=== PATIENT | female | born 1955 | race Caucasian/White ===

== ENCOUNTER → 2017-04-10 | Outpatient (CLI) | payer OTHER ==
[~2017-04-10] MED LIST: AMLO10TA2 PO; LISI40TA PO; MULT-6 PO; OMEG1CAP23 PO
[2017-04-10 12:50] LABS: HEMATOCRIT 37.4 % (34.6-47.8); HEMOGLOBIN 12.4 g/dL (11.7-16.4); WHITE BLOOD COUNT 7.7 x10^3/uL (3.4-10)
[2017-04-10 13:01] LABS: ASPARTATE AMINO TRANSFERASE 11 U/L (15-37); BLOOD UREA NITROGEN 21 mg/dL (7-18)
== END | disposition home or self-care (01) ==
LOC: STAR 12:00
PROVIDERS: ATTEND Specialist
DX: Z01.818 Encounter for other preprocedural examination (principal); R94.31 Abnormal electrocardiogram [ECG] [EKG]; R79.1 Abnormal coagulation profile
CPT/HCPCS: 36415; 71020; 80053; 85025; 85610; 85730; 86304; 93005

== ENCOUNTER 2017-04-30 10:13 | Inpatient (IN) | payer OTHER ==
[~2017-04-30] VITALS: Ht 177.8 cm; Wt 76.2 kg
[2017-04-30] MEDS ORDERED: PANTOPRAZOLE 80 MG in SODIUM CHLORIDE 0.9% 100 ML IV SCH (10:51)
[2017-04-30] MEDS ORDERED: PANTOPRAZOLE 80 MG in SODIUM CHLORIDE 0.9% 50 ML IVPB ONE (10:51)
[2017-04-30] MEDS ORDERED: SODIUM CHLORIDE FLUSH 10ML SYR IVF ONE (11:00)
[2017-04-30] MEDS ORDERED: FAMOTIDINE 20 MG/2 ML IVPush ONE (11:00)
[2017-04-30] MEDS ORDERED: SODIUM CHLORIDE 0.9% 1,000ML IVBOLUS ONE ×3 (11:00→13:30)
[2017-04-30] MEDS ORDERED: FAMOTIDINE 20 MG/2 ML ONE (11:12)
[2017-04-30 11:18] LABS: MEAN CORPUSCULAR HEMOGLOBIN 29.4 pg (27.0-34.8); MEAN CORPUSCULAR HGB CONC 33.2 g/dL (32.4-35.8); MEAN CORPUSCULAR VOLUME 88.7 fL (80-100); MEAN PLATELET VOLUME 6.2 fL (7.4-10.4); PLATELET COUNT 685 x10^3/uL (130-400); RED BLOOD COUNT 1.33 x10^6/uL (3.82-5.3); RED CELL DISTRIBUTION WIDTH 14.5 % (9.6-15.2)
[2017-04-30 11:19] LABS: HEMOGRAM NOTE RECHECKED
[2017-04-30 11:20] LABS: INTERNATIONAL NORMALIZED RATIO 1.31 (0.93-1.1)
[2017-04-30 11:24] LABS: ALANINE AMINOTRANSFERASE 14 U/L (12-78); ALBUMIN 1.9 g/dL (3.4-5.0); ANION GAP 9 mmol/L (5-15); CALCIUM 7.6 mg/dL (8.5-10.1); CHLORIDE 108 mmol/L (98-107); CREATININE 1.12 mg/dL (0.55-1.02)
[2017-04-30 11:26] LABS: ALKALINE PHOSPHATASE 53 U/L (45-117); BILIRUBIN,TOTAL 3.8 mg/dL (0.2-1.0); TOTAL PROTEIN 4.9 g/dL (6.4-8.2)
[2017-04-30 11:45] LABS: PROTHROMBIN TIME 13.4 Seconds (9.6-11.5)
[2017-04-30 11:52] LABS: MD YES
[2017-04-30 12:18] VITALS: BP 97/52
[2017-04-30 12:27] LABS: BAND#(MANUAL) 0.41 x10^3/uL; BANDS%(MANUAL) 2 % (0-7); LYMPH#(MANUAL) 1.04 x10^3/uL (1-3.4); LYMPHS% (MANUAL) 5 % (22-44); MONOS#(MANUAL) 0.21 x10^3/uL (0.3-2.7); MONOS% (MANUAL) 1 % (2-9); SEG#(MANUAL) 19.04 x10^3/uL (1.8-6.8); SEGS% (MANUAL) 92 % (42-75)
[2017-04-30 12:28] LABS: <PLATELET ESTIMATE> INCREASED; <PLT MORPHOLOGY> NORMAL PLT MORPH; ANISOCYTOSIS 1+; HYPOCHROMIA 1+; MICROCYTOSIS 1+
[2017-04-30 12:30] LABS: SPHEROCYTES 1+
[2017-04-30 12:33] VITALS: BP 97/52
[2017-04-30] MEDS ORDERED: CEFTRIAXONE PMX 1GM/50ML 50 ML ONE (12:36)
[2017-04-30] MEDS ORDERED: BISACODYL 10 MG SUPP PR PRN (13:30)
[2017-04-30] MEDS ORDERED: CEFTRIAXONE PMX 1GM/50ML 50 ML IV ONE (14:00)
[2017-04-30] MEDS ORDERED: SODIUM CHLORIDE 0.9% 1,000 ML IV SCH (14:00)
[2017-04-30 14:09] VITALS: BP 97/56
[2017-04-30 17:08] VITALS: BP 115/66
[2017-04-30] MEDS: THIAMINE 100 MG, MVI ADULT 10 ML, FOLIC ACID 1 MG in D5%-0.9% NACL 1,000 ML IV SCH (21:14)
[2017-04-30] MEDS: PANTOPRAZOLE 80 MG in SODIUM CHLORIDE 0.9% 100 ML IV SCH (21:37)
[2017-05-01 04:00] VITALS: BP 140/73
[2017-05-01 05:09] LABS: ALANINE AMINOTRANSFERASE 13 U/L (12-78); ALBUMIN 1.8 g/dL (3.4-5.0); ANION GAP 5 mmol/L (5-15); CALCIUM 6.9 mg/dL (8.5-10.1); CHLORIDE 116 mmol/L (98-107); CREATININE 0.72 mg/dL (0.55-1.02)
[2017-05-01 05:11] LABS: ALKALINE PHOSPHATASE 48 U/L (45-117); BILIRUBIN,TOTAL 2.6 mg/dL (0.2-1.0); TOTAL PROTEIN 4.5 g/dL (6.4-8.2)
[2017-05-01 05:12] LABS: BASOPHILS # (AUTO) 0.05 x10^3/uL (0-0.1); BASOPHILS % (AUTO) 0 % (0-1); EOSINOPHILS # (AUTO) 0.03 x10^3/uL (0-0.4); EOSINOPHILS % (AUTO) 0 % (1-7); LYMPHOCYTES # (AUTO) 2.17 x10^3/uL (1-3.4); LYMPHOCYTES % (AUTO) 15 % (22-44); MD NO; MEAN CORPUSCULAR HEMOGLOBIN 30.6 pg (27.0-34.8); MEAN CORPUSCULAR VOLUME 87.3 fL (80-100); MEAN PLATELET VOLUME 6.4 fL (7.4-10.4); MONOCYTES % (AUTO) 7 % (2-9); NEUTROPHILS # (AUTO) 11.64 x10^3/uL (1.8-6.8); NEUTROPHILS % (AUTO) 78 % (42-75); PLATELET COUNT 513 x10^3/uL (130-400); RED BLOOD COUNT 2.82 x10^6/uL (3.82-5.3); RED CELL DISTRIBUTION WIDTH 16.3 % (9.6-15.2)
[2017-05-01] MEDS ORDERED: MAGNESIUM SULFATE PMX 4GM/100M 100 ML IV ONE (07:30)
[2017-05-01] MEDS ORDERED: POTASSIUM CHLORIDE 40 MEQ in SODIUM CHLORIDE 0.9% 100 ML IV ONE (07:30)
[2017-05-01] MEDS: PANTOPRAZOLE 80 MG in SODIUM CHLORIDE 0.9% 100 ML IV SCH ×2 (07:47→21:46)
[2017-05-01] MEDS: SODIUM CHLORIDE 0.45% 1,000 ML IV SCH (10:10)
[2017-05-01] MEDS ORDERED: FENTANYL PF 100 MCG/2ML ONE (12:24)
[2017-05-01] MEDS ORDERED: MIDAZOLAM 1 MG/ML, 5ML ONE (12:25)
[2017-05-01 14:00] VITALS: BP 136/79
[2017-05-01 18:20] VITALS: BP 150/68
[2017-05-01 18:25] VITALS: BP 182/71
[2017-05-01 18:28] VITALS: BP 179/85
[2017-05-01 20:00] VITALS: BP 135/80
[2017-05-01] MEDS: THIAMINE 100 MG, MVI ADULT 10 ML, FOLIC ACID 1 MG in D5%-0.9% NACL 1,000 ML IV SCH (21:46)
[2017-05-02] MEDS: THIAMINE IV SCH (01:32)
[2017-05-02] MEDS: D5 IV SCH (01:32)
[2017-05-02] MEDS: NACL IV SCH (01:32)
[2017-05-02] MEDS: FOLIC ACID IV SCH (01:32)
[2017-05-02] MEDS: MVI ADULT IV SCH (01:32)
[2017-05-02 04:00] VITALS: BP 139/76
[2017-05-02 06:01] LABS: CHLORIDE 111 mmol/L (98-107)
[2017-05-02 06:05] LABS: ANION GAP 6 mmol/L (5-15); CALCIUM 7.6 mg/dL (8.5-10.1); CREATININE 0.61 mg/dL (0.55-1.02)
[2017-05-02 06:11] LABS: BASOPHILS # (AUTO) 0.07 x10^3/uL (0-0.1); BASOPHILS % (AUTO) 1 % (0-1); EOSINOPHILS # (AUTO) 0.13 x10^3/uL (0-0.4); EOSINOPHILS % (AUTO) 1 % (1-7); LYMPHOCYTES # (AUTO) 1.42 x10^3/uL (1-3.4); LYMPHOCYTES % (AUTO) 13 % (22-44); MD NO; MEAN CORPUSCULAR HEMOGLOBIN 30.6 pg (27.0-34.8); MEAN CORPUSCULAR HGB CONC 34.6 g/dL (32.4-35.8); MEAN CORPUSCULAR VOLUME 88.5 fL (80-100); MEAN PLATELET VOLUME 6.4 fL (7.4-10.4); MONOCYTES # (AUTO) 0.64 x10^3/uL (0.2-0.8); MONOCYTES % (AUTO) 6 % (2-9); NEUTROPHILS # (AUTO) 8.95 x10^3/uL (1.8-6.8); NEUTROPHILS % (AUTO) 80 % (42-75); PLATELET COUNT 531 x10^3/uL (130-400); RED BLOOD COUNT 3.18 x10^6/uL (3.82-5.3); RED CELL DISTRIBUTION WIDTH 17.1 % (9.6-15.2)
[2017-05-02 07:06] VITALS: BP 130/77
[2017-05-02] MEDS: PANTOPRAZOLE 80 MG in SODIUM CHLORIDE 0.9% 100 ML IV SCH (08:17)
[2017-05-02] MEDS: SODIUM CHLORIDE 0.45% 1,000 ML IV SCH (08:17)
[2017-05-02] MEDS ORDERED: D5 IV SCH (13:30)
[2017-05-02] MEDS ORDERED: THIAMINE IV SCH (13:30)
[2017-05-02] MEDS ORDERED: NACL IV SCH (13:30)
[2017-05-02] MEDS ORDERED: MVI ADULT IV SCH (13:30)
[2017-05-02] MEDS ORDERED: FOLIC ACID IV SCH (13:30)
[2017-05-02 16:27] VITALS: BP 123/74
[2017-05-02 19:27] VITALS: BP 143/76
[2017-05-03 00:50] VITALS: BP 114/72
[2017-05-03] MEDS: THIAMINE IV SCH (00:55)
[2017-05-03] MEDS: FOLIC ACID IV SCH (00:55)
[2017-05-03] MEDS: D5 IV SCH (00:55)
[2017-05-03] MEDS: NACL IV SCH (00:55)
[2017-05-03] MEDS: MVI ADULT IV SCH (00:55)
[2017-05-03 07:32] VITALS: BP 143/86
[2017-05-03 07:47] LABS: ALANINE AMINOTRANSFERASE 18 U/L (12-78); ALBUMIN 1.6 g/dL (3.4-5.0); ANION GAP 5 mmol/L (5-15); CALCIUM 7.1 mg/dL (8.5-10.1); CHLORIDE 108 mmol/L (98-107); CREATININE 0.54 mg/dL (0.55-1.02)
[2017-05-03 07:50] LABS: MEAN CORPUSCULAR HEMOGLOBIN 30.8 pg (27.0-34.8); MEAN PLATELET VOLUME 6.3 fL (7.4-10.4); PLATELET COUNT 483 x10^3/uL (130-400); RED BLOOD COUNT 2.61 x10^6/uL (3.82-5.3); RED CELL DISTRIBUTION WIDTH 16.5 % (9.6-15.2)
[2017-05-03 08:04] LABS: BASOPHILS # (AUTO) 0.02 x10^3/uL (0-0.1); BASOPHILS % (AUTO) 0 % (0-1); EOSINOPHILS # (AUTO) 0.11 x10^3/uL (0-0.4); EOSINOPHILS % (AUTO) 1 % (1-7); LYMPHOCYTES # (AUTO) 1.19 x10^3/uL (1-3.4); LYMPHOCYTES % (AUTO) 12 % (22-44); MD SCAN; MONOCYTES # (AUTO) 0.71 x10^3/uL (0.2-0.8); MONOCYTES % (AUTO) 7 % (2-9); NEUTROPHILS # (AUTO) 7.83 x10^3/uL (1.8-6.8); NEUTROPHILS % (AUTO) 79 % (42-75)
[2017-05-03 08:06] LABS: ALKALINE PHOSPHATASE 59 U/L (45-117); BILIRUBIN,TOTAL 1.6 mg/dL (0.2-1.0); TOTAL PROTEIN 4.5 g/dL (6.4-8.2)
[2017-05-03] MEDS ORDERED: MAGNESIUM SULFATE PMX 2GM/50ML 50 ML IV ONE (09:30)
[2017-05-03] MEDS: SUCRALFATE 1 GM/10 ML UDC PO SCH ×3 (10:49→20:29)
[2017-05-03] MEDS: FAMOTIDINE 20 MG TABLET PO SCH ×2 (10:49→20:29)
[2017-05-03 13:48] VITALS: BP 139/81
[2017-05-03 20:20] VITALS: BP 118/73
[2017-05-04] MEDS: MVI ADULT IV SCH (00:57)
[2017-05-04] MEDS: D5 IV SCH (00:57)
[2017-05-04] MEDS: FOLIC ACID IV SCH (00:57)
[2017-05-04] MEDS: NACL IV SCH (00:57)
[2017-05-04] MEDS: THIAMINE IV SCH (00:57)
[2017-05-04 02:00] VITALS: BP 126/82
[2017-05-04 07:27] LABS: ANION GAP 3 mmol/L (5-15); CALCIUM 7.2 mg/dL (8.5-10.1); CHLORIDE 108 mmol/L (98-107); CREATININE 0.57 mg/dL (0.55-1.02)
[2017-05-04 07:30] VITALS: BP 117/72
[2017-05-04 07:43] LABS: BASOPHILS # (AUTO) 0.03 x10^3/uL (0-0.1); BASOPHILS % (AUTO) 0 % (0-1); EOSINOPHILS # (AUTO) 0.12 x10^3/uL (0-0.4); EOSINOPHILS % (AUTO) 1 % (1-7); LYMPHOCYTES # (AUTO) 1.14 x10^3/uL (1-3.4); LYMPHOCYTES % (AUTO) 12 % (22-44); MD NO; MEAN CORPUSCULAR HEMOGLOBIN 29.8 pg (27.0-34.8); MEAN CORPUSCULAR HGB CONC 33.3 g/dL (32.4-35.8); MEAN CORPUSCULAR VOLUME 89.6 fL (80-100); MEAN PLATELET VOLUME 6.4 fL (7.4-10.4); MONOCYTES # (AUTO) 0.74 x10^3/uL (0.2-0.8); MONOCYTES % (AUTO) 8 % (2-9); NEUTROPHILS % (AUTO) 78 % (42-75); PLATELET COUNT 493 x10^3/uL (130-400)
[2017-05-04] MEDS: SUCRALFATE 1 GM/10 ML UDC PO SCH (08:35)
[2017-05-04] MEDS: FAMOTIDINE 20 MG TABLET PO SCH (08:35)
[2017-05-04] MEDS ORDERED: ERGOCALCIFEROL 50,000 UNIT CAPSULE PO SCH (09:00)
[2017-05-04] MEDS ORDERED: SUCR1ORA5 PO (09:25)
[2017-05-04] MEDS ORDERED: FAMO20TA7 PO (09:25)
[2017-05-04] MEDS ORDERED: ERGO500017 PO (09:25)
[2017-05-04] MEDS ORDERED: FLU VACC QS2017-18 (36MOS+) UP/PF 0.5 ML IM-VACC ONE (10:00)
== END 2017-05-04 11:04 | disposition home or self-care (01) | DRG 391 ==
LOC: ED 11:29 → EDIP 11:31 → CCU 13:12 → 4WST 05-01 11:28 → 4EST 05-02 13:56 → DCLOUNGE 05-04 10:44
PROVIDERS: ADMIT Hospitalist; ATTEND Hospitalist
PROC: 30233N1 Transfusion of Nonautologous Red Blood Cells into Peripheral Vein, Percutaneous Approach (ICD-10-PCS; 2017-04-30)
PROC: 0DB58ZX Excision of Esophagus, Via Natural or Artificial Opening Endoscopic, Diagnostic (ICD-10-PCS; principal; 2017-05-01 12:30)
DX: K20.9 Esophagitis, unspecified (principal); N17.0 Acute kidney failure with tubular necrosis; R57.9 Shock, unspecified; E43 Unspecified severe protein-calorie malnutrition; J90 Pleural effusion, not elsewhere classified; E87.2 Acidosis; D62 Acute posthemorrhagic anemia; K92.1 Melena; E87.0 Hyperosmolality and hypernatremia; R17 Unspecified jaundice; Z68.24 Body mass index [BMI] 24.0-24.9, adult; D72.829 Elevated white blood cell count, unspecified; E55.9 Vitamin D deficiency, unspecified; I10 Essential (primary) hypertension; W19.XXXA Unspecified fall, initial encounter; Z85.038 Personal history of other malignant neoplasm of large intestine; Z90.721 Acquired absence of ovaries, unilateral; Z93.1 Gastrostomy status
CPT/HCPCS: 36415; 36430; 71010; 80048; 80053; 82306; 82607; 82728; 82962; 83540; 83550; 83605; 83735; 84100; 84466; 85014; 85018; 85025; 85610; 85730; 86850; 86900; 86923; 87040; 87081; 88305; 88312; 88342; 90686; 93005; 96361; 96365; 96375; J2250; J3010; J3411; J3480; J7042; C9113; G0461; J3475; J7030; P9016; S0028

== ENCOUNTER → 2017-07-17 | Outpatient (CLI) | payer OTHER ==
[~2017-07-17] MED LIST changes: +ERGO500017 PO; +FAMO20TA7 PO; +OMNIPAQUE 350 MG/ML, 100ML BOTTLE ONE; +SUCR1ORA5 PO
== END | disposition home or self-care (01) ==
LOC: CFH 09:10
PROVIDERS: ATTEND Internal Medicine Hematology & Oncology
DX: N28.89 Other specified disorders of kidney and ureter (principal); K22.8 Other specified diseases of esophagus; K59.00 Constipation, unspecified; C18.0 Malignant neoplasm of cecum; C18.2 Malignant neoplasm of ascending colon
CPT/HCPCS: 71260; 74177; Q9967

== ENCOUNTER → 2017-10-25 | Outpatient (CLI) | payer OTHER ==
[~2017-10-25] MED LIST changes: +CHEMO
== END | disposition home or self-care (01) ==
LOC: RAD 11:17
PROVIDERS: ATTEND Internal Medicine Hematology & Oncology
DX: R18.8 Other ascites (principal); C19 Malignant neoplasm of rectosigmoid junction; C18.2 Malignant neoplasm of ascending colon; C18.0 Malignant neoplasm of cecum
CPT/HCPCS: 71260; 74177; J1642; Q9967